=== PATIENT | male | born 1990 | race Caucasian/White ===

== ENCOUNTER 2025-03-22 23:43 | Emergency (ER) | payer SELFPAY ==
[2025-03-22 23:43] VITALS: BP 166/101; PULSE 91; RESP 15; TEMP 36.2; O2SAT 100; BMI 28.2
--- NOTE | 2025-03-22 23:59 | EX.ED.DYSGE1 ---
HPI History of Present Illness Chief Complaint: Edema Informant: patient Narrative Narrative: Patient has had soreness and gradual onset of swelling in the left ankle for the past 5 or 6 days. About 4 or 5 days prior to that, he was at a concert, drinking, crowd surfing, he does not know a lot of details and does not recall any specific injury, but mentions it because he is not sure if it is related or not. Does not hurt to walk on. He was having some pain up the calf at 1 point but not right now it is mostly at the medial aspect of the left ankle but the whole ankle is swollen. Today, the right ankle started swollen so he became concerned. He has never had this before. He is a heavy drinker, but does not use any other illicit substances or IV drugs. He denies any dyspnea/orthopnea, GI symptoms, recent travel/immobilization/hospitalization/surgery, or history of blood clots or clotting disorders that he knows of. PFSH PFSH Medical History no medical history no medical history Allergy/AdvReac Type Severity Reaction Status Date / Time No Known Allergies Allergy Verified 03/22/25 23:43 Family History no significant family his Surgical History no surgical history Social History Smoking Status: Never smoker ROS ROS ED Constitutional Constitutional ED: Denies chills or fever(s) Eyes Eyes: Denies change in vision or diplopia ENT ENT ED: Denies rhinorrhea or sore throat Cardiovascular Cardiovascular: Reports leg edema; Denies chest pain, orthopnea or palpitations Respiratory/Chest Respiratory/Chest: Denies cough, dyspnea, dyspnea on exertion or orthopnea Gastrointestinal Gastrointestinal: Denies abdominal pain, diarrhea, nausea or vomiting Genitourinary Genitourinary ED: Denies dysuria or hematuria Musculoskeletal Musculoskeletal: Reports other Details: Left ankle pain. No other pain currently in the right or left lower extremities or the arms. ; Denies back pain or neck pain Integumentary Denies abscess or rash Neurologic Neurologic: Denies headache(s), paresthesias or weakness Psychiatric Psychiatric: Denies anxiety or suicidal thoughts EXAM Physical Exam Const Vital Signs: 03/22/25 23:43 03/23/25 00:29 Temperature 97.2 F L Temperature Source Temporal Pulse Rate 91 Respiratory Rate 15 Respiratory Effort Normal Respiratory Pattern Normal Blood Pressure 166/101 H Blood Pressure Mean 122 Pulse Ox 100 Oxygen Delivery Method Room Air Positive well nourished and well developed General Appearance ED: well developed and NAD HEENT Reports moist mucous membranes normocephalic and atraumatic Eyes PERRL and EOMs intact bilaterally Neck full ROM, supple and no JVD Resp normal respiratory effort and clear to auscultation bilaterally Cardio regular rate, regular rhythm and no murmurs Rate: Negative for tachycardic GI non-tender and non-distended GI Narrative: No fluid wave/ascites on exam Auscultation: normoactive bowel sounds Palpation: soft Back/Spine no CVA tenderness General Back: other FROM Extremity normal to inspection Extremity Narrative: On exam the left ankle was swollen more so than the right. There is erythema left lateral ankle but not of it is tender. There is no erythema at the medial left ankle but he has some mild tenderness at the medial malleolus and 5 or 6 cm proximal to that in the medial lower leg. Normal on inspection. Edema goes a little further up the lower leg on the left and it does in the right, where it just affects the malleoli but without any erythema. He can move both ankles without limitation or significant discomfort. He has decreased pulses they are symmetric in both feet 1+ DP. There is no palpable cords or calf tenderness or thigh tenderness. He has brisk cap refill and there is no sign of necrotic tissue. Arms are normal, the other extremity exam is normal. General Extremety ED: Yes edema; Negative for pulses abnormal or tenderness General Extremity: edema; Negative for pulses abnormal Neuro oriented x3, CN's II-XII intact bilaterally and no sensory deficits noted Sensorium / Orientation: awake and alert Motor Exam: strength 5/5 throughout Psych mental status grossly normal Skin no rashes or lesions noted and no wounds MDM MDM MDM Narrative Medical decision making narrative: Obtain labs including liver enzymes/CMP, blood counts to rule out anemia, hypoproteinemia, liver failure. All of these labs are normal. Also ran a D-dimer to rule out thromboembolic disease, that was within normal limits ruling out DVTs. I also ordered a ankle x-ray of his left ankle to rule out fracture but he refused it, and he understands that otherwise we would not know. He does not feel like it is broken, that is up to him. I reassured him advise elevating his legs for now, and following up with his doctor he states he is flying home in a few hours and I advised him that he is stable for travel. Lab Data Attestation: I reviewed the patient's lab results. Labs: Laboratory Results - last 24 hr 03/23/25 00:27 WBC 7.0 RBC 5.20 Hgb 15.8 Hct 45.3 MCV 87.1 MCH 30.4 MCHC 34.9 RDW Std Deviation 37.0 RDW Coeff of Henry 11.4 L Plt Count 224 MPV 9.1 Immature Gran % (Auto) 0.300 Neut % (Auto) 61.0 Lymph % (Auto) 29.8 [place] % (Auto) 6.3 Eos % (Auto) 2.0 Baso % (Auto) 0.6 Absolute Neuts (auto) 4.3 Absolute Lymphs (auto) 2.10 Nucleated RBC % 0 PT 13.1 INR 1.0 D-Dimer Quant (PE/DVT) 0.41 Sodium 136 Potassium 4.1 Chloride 98 Carbon Dioxide 25.2 Anion Gap 12 BUN 11 Creatinine 1.14 Estim Creat Clear Calc 98.58 Est GFR (MDRD) Non-Af 86 BUN/Creatinine Ratio 10.0 Glucose 130 H Calcium 9.5 Total Bilirubin 0.99 AST 28 ALT 18 Alkaline Phosphatase 75 Total Protein 7.5 Albumin 4.4 Globulin 3.0 Albumin/Globulin Ratio 1.5 Discharge Plan Triage Chief Complaint: Edema ED Provider: Severo Aguilar Dx/Rx/DC Orders Clinical Impression: Bilateral leg edema, Ankle pain, left Instructions: ED Peripheral Edema, Bilateral Primary Care Provider: IGNACIA PAULA Referrals: [facility] Doctor,Out of [Non-Staff] - 1 Week Print Language: Mongolian Disposition Disposition: Home, Self Care
--- NOTE | 2025-03-23 00:30 | ED.RN ---
patient and S.o state they would like to hold off on xrays due to paying out of pocket. Dr. Aguilar notified
[2025-03-23 00:37] LABS: Hematocrit 45.3 % (40-54); Hemoglobin 15.8 g/dL (13.0-16.5); Immature Granulocytes Count 0.020 X10^3/uL (0.0-0.0); Mean Corp Hgb Conc 34.9 g/dL (32-36); Mean Corpuscular Volume 87.1 fL (80-94); Mean Platelet Vol. 9.1 fl (6.2-12.0); NRBC Flagged by Analyzer 0 % (0-5); Platelet Count 224 K/mm3 (150-450); RBC Distribution Width CV 11.4 % (11.6-14.6); RBC Distribution Width SD 37.0 fl (35.1-43.9); Red Blood Count 5.20 M/mm3 (4.6-6.2); White Blood Count 7.0 K/mm3 (4.4-11.0)
[2025-03-23 00:51] LABS: Prothrombin Time (Protime)PT. 13.1 SECONDS (11.7-14.9)
[2025-03-23 00:58] LABS: AST(SGOT) 28 U/L (<=37); Alanine Aminotransfer ALT/SGPT 18 U/L (<=46); Albumin, Serum 4.4 g/dL (3.5-5.0); Alkaline Phosphatase 75 U/L (40-129); Anion Gap 12 (5-15); BUN 11 mg/dL (4-19); BUN/Creat Ratio 10.0 RATIO (10-20); Calcium,Total 9.5 mg/dL (7.6-11.0); Carbon Dioxide 25.2 mmol/L (21.0-32.0); Chloride 98 mmol/L (98-108); Estimated Creatinine Clearance 98.58 ml/min (50-250); Globulin 3.0 g/dL (2.2-4.2); Glucose 130 mg/dL (70-99); Potassium 4.1 mmol/L (3.3-5.1)
[2025-03-23 01:06] LABS: D-Dimer Quantitative (DVT/PE) 0.41 FEU/ug/m (0.27-0.49)
[2025-03-23 01:33] VITALS: BP 144/89; PULSE 81; RESP 14; TEMP 36.1; O2SAT 97
== END 2025-03-23 01:34 | disposition home or self-care (01) ==
PROVIDERS: Emergency Provider Emergency Medicine; Visit Provider Emergency Medicine
DX: R60.0 Localized edema (principal); M25.572 Pain in left ankle and joints of left foot
CPT/HCPCS: 80053; 85025; 85379; 85610; 99283; A4216